=== PATIENT | female | born 1945 | race African-American/Black ===

== ENCOUNTER 2016-11-23 08:18 | Day surgery (SDC) | payer OTHER ==
[2016-11-16 13:51] VITALS: BMI 33.6
[2016-11-23] MEDS ORDERED: PROPOFOL 20 ML ONE ×2 (08:52)
[2016-11-23 11:39] VITALS: TEMP 98.1
[2016-11-23 11:45] VITALS: BP 113/56; PULSE 68
== END 2016-11-23 11:15 | disposition home or self-care (01) ==
LOC: FASU-ENDO 08:18
PROVIDERS: ATTEND Internal Medicine Gastroenterology
PROC: 0DJD8ZZ Inspection of Lower Intestinal Tract, Via Natural or Artificial Opening Endoscopic (ICD-10-PCS; principal; 2016-11-23 10:12)
DX: Z12.11 Encounter for screening for malignant neoplasm of colon (principal); K57.30 Diverticulosis of large intestine without perforation or abscess without bleeding